=== PATIENT | male | born 1950 | race Caucasian/White ===

== ENCOUNTER 2016-08-13 08:56 | Day surgery (SDC) | payer MEDICARE, OTHER ==
[~2016-08-13] VITALS: Ht 172.7 cm; Wt 68.3 kg
[~2016-08-13 08:56] MED LIST: EC NAPROSYN500 MG PO; GLUCOSAMINE & C1 TA2 PO; HCTZ 25MG TAB25 MG PO; MOTRIN 800800 MG/TAB PO; NORCO 325 MG-51 TAB PO; PEPCID 20MG TAB20 MG PO; PRAVACHOL 40MG40 MG PO; RT SPIRIVA18 MCG IH; ZOFRAN 4MG T4 MG/TAB PO
[2016-08-13] MEDS ORDERED: RT SPIRIVA18 MCG IH (09:34)
[2016-08-13] MEDS ORDERED: PRAVACHOL 40MG40 MG PO (09:35)
[2016-08-13] MEDS ORDERED: ZYLOPRIM 100MG100 MG PO (09:35)
[2016-08-13] MEDS ORDERED: HCTZ 25MG TAB25 MG PO (09:35)
[2016-08-13 09:53] VITALS: BP 119/75; PULSE 57; TEMP 98.1
[2016-08-13 12:10] VITALS: BP 104/73; PULSE 57; TEMP 97.9
[2016-08-13 12:25] VITALS: BP 102/71; PULSE 55
[2016-08-13 12:40] VITALS: BP 105/70; PULSE 54
== END 2016-08-13 13:20 | disposition home or self-care (01) ==
LOC: SDCO 08:56
DX: Z86.010 Personal history of colon polyps (principal); K63.5 Polyp of colon
CPT/HCPCS: J2250; J3010; J7030

== ENCOUNTER 2017-04-23 21:01 | Emergency (ER) | payer MEDICARE, OTHER ==
[~2017-04-23] VITALS: Ht 172.7 cm; Wt 66.8 kg
[~2017-04-23 21:01] MED LIST changes: +ZYLOPRIM 100MG100 MG PO
[2017-04-23 21:03] VITALS: TEMP 98.3
[2017-04-23 21:42] LABS: BASO % 0.3 % (0.0-2.0); EOS # 0.3 (0.0-0.7); EOS % 2.9 % (0-4.0); GRAN # 5.5 (1.4-6.5); GRAN % 57.5 % (42.2-75.2); HEMATOCRIT 42.9 % (42.0-52.0); HEMOGLOBIN 14.5 g/dl (13.5-18.0); LYMPH # 2.7 (1.2-3.4); LYMPH % 28.2 % (20.0-51.0); MEAN CELL VOLUME 93 fl (80.0-100.0); MEAN CORPUSCULAR HEMOGLOBIN 31 pg (27.0-31.0); MEAN CORPUSCULAR HGB CONC 34 g/dl (33.0-37.0); MEAN PLATELET VOLUME 9.5 fl (7.4-10.4); MONO # 1.1 (0.1-0.6); MONO % 10.9 % (1.7-9.3); PLATELET COUNT 247 K/mm3 (130-400); RED BLOOD COUNT 4.62 M/mm3 (4.20-5.60); REDCELL DISTRIBUTION WIDTH-CV 13.8 % (11.5-14.5); WHITE BLOOD COUNT 9.6 K/mm3 (4.8-10.8)
[2017-04-23 21:53] LABS: ADJUSTED CALCIUM 9.2 mg/dL (8.4-10.2); BILIRUBIN,TOTAL 0.6 mg/dL (0.0-1.0); CALCIUM 9.2 mg/dL (8.4-10.2); CREATININE, serum 0.84 mg/dL (0.66-1.25); POTASSIUM 3.4 mmol/L (3.4-5.0); TOTAL PROTEIN 7.3 gm/dL (6.4-8.2)
[2017-04-23] MEDS ORDERED: FLAGYL500 MG PO (23:12)
[2017-04-23] MEDS ORDERED: CIPRO 500MG TA500 MG PO (23:12)
[2017-04-23 23:27] VITALS: BP 147/86; PULSE 74
== END 2017-04-23 23:23 | disposition home or self-care (01) ==
LOC: COL.ER 21:01
PROVIDERS: Emergency Medicine
DX: K52.9 Noninfective gastroenteritis and colitis, unspecified (principal); I10 Essential (primary) hypertension; F17.210 Nicotine dependence, cigarettes, uncomplicated; E78.5 Hyperlipidemia, unspecified; J44.9 Chronic obstructive pulmonary disease, unspecified
CPT/HCPCS: J7030; Q9967

== ENCOUNTER → 2018-07-24 | Outpatient (CLI) | payer MEDICARE, OTHER ==
[~2018-07-24] MED LIST changes: +CIPRO 500MG TA500 MG PO; +FLAGYL500 MG PO
== END ==
LOC: COL.VAS 10:41
DX: G45.9 Transient cerebral ischemic attack, unspecified (principal); I70.90 Unspecified atherosclerosis

== ENCOUNTER 2024-05-05 13:55 | Emergency (ER) | payer MEDICARE, OTHER ==
[~2024-05-05] VITALS: Ht 170.2 cm; Wt 72.7 kg
[2024-05-05 14:05] VITALS: TEMP 98.1
[2024-05-05 14:42] LABS: BASO % 0.3 % (0.0-2.0); EOS # 0.3 K/mm3 (0.0-0.7); EOS % 3.4 % (0.0-4.0); GRAN # 4.9 K/mm3 (1.4-6.5); GRAN % 62.9 % (42.2-75.2); HEMATOCRIT 42.3 % (42.0-52.0); HEMOGLOBIN 14.7 g/dl (13.5-18.0); LYMPH # 1.7 K/mm3 (1.2-3.4); LYMPH % 22.3 % (20.0-51.0); MEAN CELL VOLUME 92 fl (80.0-100.0); MEAN CORPUSCULAR HEMOGLOBIN 32 pg (27-31); MEAN CORPUSCULAR HGB CONC 35 g/dl (33.0-37.0); MEAN PLATELET VOLUME 9.2 fl (7.4-10.4); MONO # 0.8 K/mm3 (0.1-0.6); MONO % 10.8 % (1.7-9.3); PLATELET COUNT 249 K/mm3 (130-400); RED BLOOD COUNT 4.62 M/mm3 (4.20-5.60); REDCELL DISTRIBUTION WIDTH-CV 13.3 % (11.5-14.5)
[2024-05-05 15:01] LABS: ALBUMIN 3.6 g/dL (3.4-4.8); BILIRUBIN,TOTAL 0.8 mg/dL (0.2-1.2); CREATININE, serum 1.17 mg/dL (0.72-1.25); POTASSIUM 3.4 mEq/L (3.5-4.5); TOTAL PROTEIN 7.1 g/dl (6.2-8.1)
[2024-05-05] MEDS ORDERED: Iohexol 300 - 100 ML VIAL IV ONE (15:45)
[2024-05-05] MEDS ORDERED: NS 100 ML IV ONE (15:46)
[2024-05-05 17:25] VITALS: BP 128/78; PULSE 78
== END 2024-05-05 17:25 | disposition home or self-care (01) ==
LOC: COL.ER 13:55
PROVIDERS: Emergency Medicine
DX: K40.90 Unilateral inguinal hernia, without obstruction or gangrene, not specified as recurrent (principal)
CPT/HCPCS: Q9967